=== PATIENT | male | born 1945 | race Caucasian/White ===

== ENCOUNTER → 2016-10-29 | Outpatient (CLI) | payer OTHER, MEDICARE | LOC: MMPC 11:11 | PROVIDERS: ATTEND Internal Medicine | DX: E78.5 Hyperlipidemia, unspecified (principal); M47.816 Spondylosis without myelopathy or radiculopathy, lumbar region; K21.9 Gastro-esophageal reflux disease without esophagitis; E66.3 Overweight; I10 Essential (primary) hypertension; H93.13 Tinnitus, bilateral | CPT/HCPCS: 99213; G0463 ==

== ENCOUNTER → 2016-11-07 | Outpatient (CLI) | payer OTHER, MEDICARE | LOC: MMPC 09:00 | PROVIDERS: ATTEND Physician Assistant | DX: N39.0 Urinary tract infection, site not specified (principal); J06.9 Acute upper respiratory infection, unspecified; F17.210 Nicotine dependence, cigarettes, uncomplicated | CPT/HCPCS: 99213; G0463 ==

== ENCOUNTER → 2017-02-10 | Outpatient (CLI) | payer OTHER, MEDICARE | LOC: MMPC 09:00 | DX: M21.372 Foot drop, left foot (principal); M47.816 Spondylosis without myelopathy or radiculopathy, lumbar region | CPT/HCPCS: 99213; G0463 ==

== ENCOUNTER → 2017-03-03 | Outpatient (CLI) | payer OTHER, MEDICARE ==
[2017-03-03 14:03] LABS: BILIRUBIN,URINE NEGATIVE (NEG); CLARITY,URINE CLEAR (CLEAR); COLOR,URINE YELLOW; GLUCOSE, URINE (UA) NEGATIVE (NEG); NITRATE,URINE NEGATIVE (NEG); OCCULT BLOOD,URINE NEGATIVE (NEG); PH,URINE 6.5 (5.0-8.5); PROTEIN,URINE NEGATIVE (NEG); UROBILINOGEN,URINE 0.2 mg/dL (0.2)
[2017-03-03 14:23] LABS: URINE SAMPLE TYPE VOIDED SPECIMEN
[2017-03-03 14:24] LABS: WBC,URINE 0
[2017-03-03 16:25] LABS: BLOOD UREA NITROGEN 33 mg/dL (7-22); CALCIUM 9.9 mg/dL (8.7-10.7); EST GLOMERULAR FILTRATION > 60 (>60 ml/min/1.73m(2))
[2017-03-03 16:48] LABS: HEMATOCRIT 42.3 % (42.0-52.0); HEMOGLOBIN 14.4 g/dL (14.0-18.0); MEAN CORPUSCULAR HEMOGLOBIN 30.7 PG (27-31); MEAN CORPUSCULAR VOLUME 90.2 FL (80-90); RED BLOOD COUNT 4.69 10^6/uL (4.70-6.10)
[2017-03-03 16:49] LABS: BASOPHILS # (AUTO) 0.02 10*3/UL; BASOPHILS % (AUTO) 0.1 % (0-1); EOSINOPHILS # (AUTO) 0.12 10*3/UL; EOSINOPHILS % (AUTO) 0.7 % (0-8); LYMPHOCYTES # (AUTO) 6.03 10*3/uL; MEAN PLATELET VOLUME 9.6 FL (7.4-12.2); MONOCYTES # (AUTO) 1.13 10*3/UL (0.3-0.8); MONOCYTES % (AUTO) 6.5 % (5-15); NEUTROPHILS # (AUTO) 9.71 10*3/UL; NEUTROPHILS % (AUTO) 55.9 % (50-80); PLATELET MORPHOLOGY COMMENT NORMAL MORPHOLOGY (NORM)
[2017-03-03 16:50] LABS: RBC MORPHOLOGY COMMENT SEE COMMENTS (NORM); WBC MORPHOLOGY COMMENT SEE COMMENTS (NORM)
== END ==
LOC: MOB LAB 13:34
PROVIDERS: ATTEND Internal Medicine
DX: N39.0 Urinary tract infection, site not specified (principal); E87.1 Hypo-osmolality and hyponatremia; N40.1 Benign prostatic hyperplasia with lower urinary tract symptoms; D72.828 Other elevated white blood cell count; Z98.1 Arthrodesis status
CPT/HCPCS: 36415; 80048; 81001; 85025

== ENCOUNTER → 2017-03-20 | Outpatient (CLI) | payer OTHER, MEDICARE ==
[2017-03-20 12:48] LABS: HEMATOCRIT 37.4 % (42.0-52.0); HEMOGLOBIN 12.3 g/dL (14.0-18.0); MEAN CORPUSCULAR HEMOGLOBIN 30.1 PG (27-31); MEAN CORPUSCULAR HGB CONC 32.9 g/dL (33-37); MEAN CORPUSCULAR VOLUME 91.7 FL (80-90); MEAN PLATELET VOLUME 9.2 FL (7.4-12.2); RED BLOOD COUNT 4.08 10^6/uL (4.70-6.10)
[2017-03-20 13:26] LABS: BLOOD UREA NITROGEN 17 mg/dL (7-22); CALCIUM 10.2 mg/dL (8.7-10.7); EST GLOMERULAR FILTRATION > 60 (>60 ml/min/1.73m(2))
== END ==
LOC: MOB LAB 11:44
PROVIDERS: ATTEND Internal Medicine
DX: E87.1 Hypo-osmolality and hyponatremia (principal); N39.0 Urinary tract infection, site not specified; R79.89 Other specified abnormal findings of blood chemistry; Z98.1 Arthrodesis status
CPT/HCPCS: 36415; 80048; 85027

== ENCOUNTER 2019-04-22 18:01 | Inpatient (IN) ==
[2019-04-22] MEDS ORDERED: MORPHINE SULFATE 4 MG/1 ML IVP ONE (19:49)
--- NOTE | 2019-04-22 20:44 | DI ---
AP PELVIS and LEFT HIP, 04/22/2019 6:23 PM: Clinical History: Trauma. Previous Exam: None at this facility. Hip View: AP and frog lateral. AP Pelvis: Soft Tissues: Normal. Bony Pelvis: Intact. Sacrum and SI Joints: Normal. Symphysis Pubis: Normal. Left Hip: Head: Normal spherical femoral head. Neck: Normal. No fracture. Acetabulum: No fracture noted. Joint Space: Normal joint space. Reading: Negative AP pelvis and left hip exam.
--- NOTE | 2019-04-22 20:58 | DI ---
LEFT HAND EXAM, 04/22/2019 6:26 PM: Clinical History: Injury. The patient fell. Comparison Study: None at this facility. Views: 3 views. Soft Tissues: No soft tissue swelling. Effusion: No joint effusion present. Joints: Severe degenerative arthritic change involving the triscaphe joint. Bones: No fracture or dislocation. Reading: Negative left hand exam for fracture or dislocation.
[2019-04-22 23:14] LABS: BASOPHILS # (AUTO) 0.04 10*3/UL; BASOPHILS % (AUTO) 0.3 % (0-1); EOSINOPHILS # (AUTO) 0.18 10*3/UL; EOSINOPHILS % (AUTO) 1.5 % (0-8); Hematocrit [HCT] 47.5 % (42.0-52.0); Hemoglobin [HGB] 16.5 g/dL (14.0-18.0); LYMPHOCYTES # (AUTO) 2.31 10*3/uL; MEAN CORPUSCULAR HGB CONC 34.7 g/dL (33-37); MEAN CORPUSCULAR VOLUME 88.1 FL (80-90); MONOCYTES # (AUTO) 0.52 10*3/UL (0.3-0.8); MONOCYTES % (AUTO) 4.4 % (5-15); NEUTROPHILS # (AUTO) 8.79 10*3/UL; NEUTROPHILS % (AUTO) 73.7 % (50-80); RED BLOOD COUNT 5.39 10^6/uL (4.70-6.10)
[2019-04-22 23:17] LABS: PLATELET MORPHOLOGY COMMENT NORMAL MORPHOLOGY (NORM); RBC MORPHOLOGY COMMENT NORMAL MORPHOLOGY (NORM); WBC MORPHOLOGY COMMENT NORMAL MORPHOLOGY (NORM)
[2019-04-22 23:19] LABS: BUN/CREATININE RATIO 19.16 (6-20); SERUM ALBUMIN 4.9 g/dL (3.5-4.8)
--- NOTE | 2019-04-22 23:27 | PDOC(PROG) ---
General Note Progress Note: I was called by the emergency room physician regarding admission for this patient. Was described to me that the patient fell off a ladder from a height of about 6 feet, had some fractured ribs and a pelvic rami fracture. There were no described medical issues with the patient. I suggested to the emergency room physician that this should go through the trauma service and general surgery because there is no medical issue apparent, but that I would be happy to consult on any medical issues that the patient may have. In addition we have phone coverage with orthopedics at this point but no orthopedic physician available for a physical exam consultation of the patient tonight. Although likely the pelvic rami fracture is nonsurgical, it would be my thought process that it would be nice to have a note and an examination from an orthopedic physician to make that determination. After this discussion with the emergency room physician, was brought to my attention from nurses on the medical surgical floor that general surgery has admitted the patient in the setting of a trauma. Again, I offered to do any medical consultation necessary if requested to do so.
[2019-04-22] MEDS ORDERED: HYDROcodone/IBUPROFEN 7.5 MG/200 MG TABLET PO PRN (23:38)
[2019-04-22] MEDS ORDERED: ONDANSETRON 4 MG/2 ML VIAL IVP PRN (23:38)
[2019-04-22] MEDS ORDERED: KETOROLAC 15 MG/1 ML VIAL IVP PRN (23:38)
[2019-04-22] MEDS ORDERED: MORPHINE SULFATE 2 MG/1 ML IVP PRN (23:38)
[2019-04-22] MEDS ORDERED: LIDOCAINE W/ SODIUM BICARB 0.5 ML SYR SUBD PRN (23:38)
[2019-04-22] MEDS ORDERED: CALCIUM CARBONATE 500 MG (TUMS) CHEWABLE TABLET PO PRN (23:38)
--- NOTE | 2019-04-23 00:12 | PDOC ---
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 He came in the emergency room complaining of pain. On the pain is located on the left side. Patient had a complete workup including CT scans of the chest and pelvis. He has multiple nondisplaced for fractures on the left. He has a nondisplaced fracture of the superior ramus of the pubis this extensive acetabular and to the ileum. I have had the CT scans reviewed by Dr. Pierre who has not seen the patient but based on CT scan recommends toe- touch ambulation for approximately 3 months. Past Medical History Medical History: Hypertension. Tinnitus of the ears. Degenerative joint disease. Benign prostatic hypertrophy Surgical History: He's had screws put in the back Tobacco Use: Never Smoker In the Past 12 Months, Have Used or Abuse Any of the Following Substance: None Medication / Allergies Home Medications: Home Medications Medication Instructions Recorded Confirmed Omeprazole 20 mg PO BID 10/06/12 04/22/19 aspirin 81 mg tablet,delayed 81 mg PO 3XW tab 11/03/17 04/22/19 release tamsulosin 0.4 mg capsule 0.4 mg PO QHS #90 cap 11/03/17 04/22/19 gabapentin 300 mg capsule 300 mg PO QDAY #30 cap 07/21/18 04/22/19 chlorthalidone 25 mg tablet 25 mg PO QDAY tab 09/03/18 04/22/19 lisinopril 20 mg tablet 20 mg PO QDAY #90 tab 09/03/18 04/22/19 pravastatin 80 mg tablet 40 mg PO QDAY tab 09/03/18 04/22/19 Allergies/Adverse Reactions: Allergies Allergy/AdvReac Type Severity Reaction Status Date / Time doxycycline calcium Allergy Severe SHORTNESS Verified 04/22/19 23:51 [From Vibramycin] OF BREATH doxycycline hyclate Allergy Severe SHORTNESS Verified 04/22/19 23:51 [From Vibramycin] OF BREATH doxycycline monohydrate Allergy Severe SHORTNESS Verified 04/22/19 23:51 [From Vibramycin] OF BREATH Penicillins Allergy Severe SHORTNESS Verified 04/22/19 23:51 OF BREATH Exam - Vitals Vital Signs: Vital Signs Temperature 98.2 F Temperature Source Temporal Artery Scan Pulse Rate [Pulse Oximeter] 80 Respiratory Rate 24 Blood Pressure [Left Arm] 121/83 Pulse Ox 97 Oxygen Delivery Method Room Air Height 5 ft 7 in Weight 165 lb - General General Appearance: No Acute Distress, Cooperative - Head Head Exam: Normocephalic - Eye Eye Exam: POSITIVE: PERRL, EOMI - Neck Neck Exam: Full ROM - Respiratory Respiratory Exam: POSITIVE: Clear to Auscultation - Bilaterally, Breathing Non Labored, Normal To Percussion - Cardiovascular Cardiovascular Exam: POSITIVE: RRR, No Murmur, No Clicks, No Gallops - GI/Abdominal GI/Abdominal Exam: POSITIVE: Normal Bowel Sounds, Non Tender, Non Distended, Soft - Rectal Rectal Exam: POSITIVE: Deferred - Extremities Extremities Exam: POSITIVE: Full ROM, Normal Capillary Refill, No Clubbing Present - Back Back Exam: POSITIVE: Normal Inspection, Full ROM - Neurological Neurological Exam: POSITIVE: Oriented x 3 Results - Labs CBC and BMP: 04/22/19 18:15 04/22/19 18:15 Assessment and Plan - Patient Problems (1) Multiple fractures of ribs, left side, initial encounter for open fracture Current Visit: Yes Status: Acute Code(s): S22.42XB - Multiple fractures of ribs, left side, initial encounter for open fracture (2) Fracture of left superior pubic ramus Current Visit: Yes Status: Acute Code(s): S32.512A - Fracture of superior rim of left pubis, initial encounter for closed fracture - Assessment / Plan Additional Assessment/Plan Details: At present time it appears that he has a fracture extending from the ramus through the acetabulum. His recommend that he is being toe-touch walking. He also has multiple rib fractures on the left. He'll be admitted for pain control. Also get physical therapy involved to help with getting ambulatory or least mobile
[2019-04-23] MEDS: HYDROcodone-APAP 7.5 MG-325 MG TABLET PO PRN ×3 (00:21→09:04)
[2019-04-23] MEDS: Apixaban Tab 2.5 MG TABLET PO SCH ×3 (00:23→20:53)
--- NOTE | 2019-04-23 03:20 | PDOC ---
Fall HPI - General Chief Complaint: Fall Stated Complaint: fell off stairs , back, hip pain Date Seen by Provider: 04/22/19 Time Seen by Provider: 18:10 Source: POSITIVE: Patient, Spouse Exam Limitations: POSITIVE: No limitations Nurse's Notes Reviewed & Considered: Yes - History of Present Illness Initial Comments: The patient is a 73-year-old male. Patient has a history of left foot drop and wears a ankle and foot brace to his left leg. He was standing on the top of some stairs and he states the tip of his left foot caught on the ground and he fell 6 feet onto the ground. He states that he has pain over the left posterior or lateral thorax and the anterior aspect of the left hip. 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 Patient is brought to the emergency room by his . Patient has pain when attempting to ambulate. He denies any head or neck discomfort or trauma. No abdominal trauma or discomfort. Patient underwent lumbar surgery 2 years ago and subsequently developed left foot drop postoperat ively. Patient is on gabapentin, Flomax, omeprazole, pravastatin and chlorthalidone.. 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 DENIES: Dazed, Seizure, Trouble Breathing, Memory Impairment, Blow to Head, Lost Consciousness, Other Location of Injuries / Pain: REPORTS: Left, Chest (Left posterior thorax), Hip (Left) Any Prior Injuries Related to Current Complaint?: Yes (foot drop following low back surgery 2 years ago) - Patient Home Medications Home Medications: Home Medications Omeprazole 20 mg PO BID 10/06/12 aspirin 81 mg tablet,delayed release 81 mg PO 3XW tab 11/03/17 tamsulosin 0.4 mg capsule 0.4 mg PO QHS #90 cap 11/03/17 gabapentin 300 mg capsule 300 mg PO QDAY #30 cap 07/21/18 chlorthalidone 25 mg tablet 25 mg PO QDAY tab 09/03/18 lisinopril 20 mg tablet 20 mg PO QDAY #90 tab 09/03/18 pravastatin 80 mg tablet 40 mg PO QDAY tab 09/03/18 - Patient Allergies Allergies/Adverse Reactions: Allergies Allergy/AdvReac Type Severity Reaction Status Date / Time doxycycline calcium Allergy Severe SHORTNESS Verified 04/22/19 23:51 [From Vibramycin] OF BREATH doxycycline hyclate Allergy Severe SHORTNESS Verified 04/22/19 23:51 [From Vibramycin] OF BREATH doxycycline monohydrate Allergy Severe SHORTNESS Verified 04/22/19 23:51 [From Vibramycin] OF BREATH Penicillins Allergy Severe SHORTNESS Verified 04/22/19 23:51 OF BREATH Past Medical History - heen HEENT History: Cataracts Cardiovascular History: Hypertension, Hyperlipidemia Respiratory History: Denies History Gastrointestinal History: GERD Genitourinary History: Denies History Endocrine History: Denies History Musculoskeletal History: Back Pain, Back Injury Neurological History: Denies History Blood Disorders: Denies History Psychiatric History: Denies History History of Sexually Transmitted Diseases: No Male Reproductive History: BPH Cancer History: Denies History In Past Year Been Physically Harmed or Verbally Threatened: No History of MDRO: No History of Other Communicable Diseases: Yes (MONO EARLY TEENS) Tobacco Use: Never Smoker Alcohol Use: Occasionally In the Past 12 Months, Have Used or Abuse Any Substance: None Previous Surgical History: Yes Type / Date of Surgery: RIGHT RC CTR/ BACK SX/ T&A/ ULNAR NERVE TRANSPOSITION Anesthesia Reactions: No Malignant Hyperthermia: No Significant Family History: Asthma, Cancer, COPD, Lung disease Past Medical History Reviewed: Reviewed - No Changes ROS - Limitations ROS Limitations: No Limitations Constitution: REPORTS: Denies Symptoms Cardiovascular: REPORTS: Denies Cardiac Symptoms Respiratory: REPORTS: Denies Resp Symptoms Neurological: REPORTS: Denies Neuro Symptoms Gastrointestinal: REPORTS: Denies GI Symptoms Endocrine: REPORTS: Denies Symptoms Musculoskeletal: REPORTS: Recent Injury (Pain left inguinal area; pain posterior lateral aspect of left thorax) Genitourinary: REPORTS: Denies Symptoms Eyes: REPORTS: Denies Symptoms ENT: REPORTS: Denies Symptoms Skin: REPORTS: Denies Skin Symptoms Lympathic: REPORTS: Denies Lympathic Symptoms Immunologic: POSITIVE: Denies Symptoms Psychiatric: POSITIVE: Denies Psych Symptoms Fall Physical Exam - General Appearance General Appearance: POSITIVE: Alert, Cooperative, No Evidence of Trauma, Mild Distress. NEGATIVE: No Acute Distress - HEENT HEENT: POSITIVE: Head Inspection Nml, Eyes Inspection Nml, Ears Inspection Nml, Nose Inspection Nml, Oral/Dental Inspect. Nml, Pharynx Inspect. Nml, PERRL, EOMI - Pupil Size Pupil Size: 3 mm: Bilateral (PERRLA) - Neck Neck: POSITIVE: Non Tender, Painless ROM, Trachea Midline, Nexus Criteria Negative - Respiratory / CVS Respiratory / CVS: POSITIVE: No Ecchymosis, Breath Sounds Normal, No Respiratory Distress, Heart Sounds Normal, Regular Rate/Rhythm, Rib Tenderness, Tenderness (See diagram), See Diagram. NEGATIVE: Chest Non Tender (Pain left posterior lateral thorax), Rib Palpable FX, Crepitus, SubQ Emphysema, Splinting, Paradoxical Movements, Decreased Breath Sounds, Ecchymosis, Swelling, Abrasion(s), Wheezes, Rales, Rhonchi, Tachycardia, Bradycardia, Irregularly Irreg Rate Peripheral Pulses: Radial (R): 2+, Radial (L): 2+ - Abdomen Abdomen: Soft: (All Quadrants), Normal Bowel Sounds: (All Quadrants), Denies Tenderness: (All Quadrants), No Splenomegaly: (All Quadrants), No Hepatomegaly: (All Quadrants), No Guarding: (All Quadrants), No Rebound: (All Quadrants), No Palpable Pulse: (All Quadrants), No Palpabale Mass: (All Quadrants), No Distention: (All Quadrants), No Rigidity: (All Quadrants) - Neuro / Psych Neuro / Psych: POSITIVE: Oriented X3, 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 NEGATIVE: Non Tender, Painless ROM, Vertebral Pt. Tenderness, CVA Tenderness (R), CVA Tenderness (L), Muscle Spasm - Extremities Extremity Assessment: Non-Tender: (RUE), (LUE), (RLE), Normal ROM: (RLE), (LUE), (RUE), No Edema: (ALL), Normal Inspection: (RUE), (LUE), (RLE), No Swelling: (ALL), Pelvis Stable: (ALL), Normal Tendon Exam: (ALL), Tender: (LLE), Abnormal ROM: (LLE) Additional Extremities Details: Extremity examination is normal except that the patient does express discomfort/pain on direct palpation over the left inguinal area. Patient is able to raise both heels off the gurney, but hip flexion is painful on the left. No gross deformities. No sensory motor or vascular deficits. Neurosensory ex am is grossly intact. Joint Exam: POSITIVE: Limited ROM. NEGATIVE: Normal ROM (Full flexion and extension of left hip limited), Normal Gait (Not tested), Ligamentous Instabil ity, Effusion, Click, Crepitus Images - Complete Complete: 1 - Area of described pain 2 - Area described pain Fall Progress - Results Reviewed by me Xrays/CTs/US Reviewed by me: Yes Discussed with Radiologist: Yes Radiology Findings: Left rib detail with a the chest read by radiologist as normal. Left hip x-ray read as normal by radiologist. CT scan of pelvis without contrast shows "nondisplaced fracture extending along the left superior pubic ramus, anterior acetabulum and ileum. CT scan of chest without contrast shows "slight irregularity of the left posterior seventh through 11th ribs, p ossible subtle fractures Lab Results Reviewed by Me: Yes CBC and BMP: 04/22/19 18:15 04/22/19 18:15 Lab Results:: Laboratory Results 04/22/19 04/22/19 18:15 18:15 WBC 11.92 H RBC 5.39 Hgb 16.5 Hct 47.5 MCV 88.1 MCH 30.6 MCHC 34.7 RDW Std Deviation 39.0 RDW Coeff of Shaheed 12.1 Plt Count 265 MPV 10.0 Immature Gran % (Auto) 0.7 Neut % (Auto) 73.7 Lymph % (Auto) 19.4 [place] % (Auto) 4.4 L Eos % (Auto) 1.5 Baso % (Auto) 0.3 Immature Gran # (Auto) 0.08 Neut # (Auto) 8.79 Lymph # (Auto) 2.31 [place] # (Auto) 0.52 Eos # (Auto) 0.18 Baso # (Auto) 0.04 WBC Morphology Comment Normal morphology Plt Morphology Comment Normal morphology RBC Morph Comment Normal morphology Sodium 128 L Potassium 3.7 L Chloride 89 L Carbon Dioxide 27 Anion Gap 12 BUN 23 H Creatinine 1.2 Estimated GFR BUN/Creatinine Ratio 19.16 Glucose 110 Calculated Osmolality 270.0 Calcium 10.8 H Total Bilirubin 0.7 AST 64 H ALT 62 Alkaline Phosphatase 62 Total Protein 8.3 H Albumin 4.9 H Globulin 3.4 Albumin/Globulin Ratio 1.40 - Patient's Progress Pain Medication Addressed: POSITIVE: Yes (Patient given 4 mg of morphine sulfate IV with good pain relief) School/Work Release Addressed: POSITIVE: Not Applicable Re-Examine Time:: 22:30 Re-Examine Comment: Patient and his advised of the radiologic and laboratory studies. Case discussed with Dr. Worley, orthopedic surgeon opinion polls survey worker, who recommended that the patient be placed on crutch walking with only toe touching on the left. However, the patient is not able to tolerate crutches due to his associated rib fractures. Case was then discussed with the hospitalist on-call, Dr. Butts, who refers the patient to the surgeon opinion polls survey worker, Dr. Oneill, who will come to the emergency room to further evaluate and treat, and who has admitted the patient. Status: POSITIVE: Improved, Re-Examined - Consult Consult (If Yes, Name of Consulting MD & Time Called): Yes (Drs. Worley, orthopedics; Dr. Butts, hospitalist; Dr. Oneill, surgeon, ) Consulting MD will see pt:: POSITIVE: [place] [facility] [place] Counseled: POSITIVE: Patient, Family (), RE: Lab Results, RE: Radiology Results, RE: DX, RE: Need for F/U Patient Care Time - Estimated PCT Patient Care Time (In Minutes): 55 Vital Signs - Recent Vital Signs Vital Signs: Vital Signs (Last 8 hours) Pulse Resp 04/22/19 23:27 74 16 - VS Reviewed Vital Signs Reviewed: Yes Discharge Clinical Impression: Rib fractures, Pelvic fracture Discharge Disposition: Admit to Inpatient Condition: Stable Patient Problem(s) Reviewed: Yes Date Decision to Admit to Inpatient: 04/22/19 Time Decision to Admit to Inpatient: 22:15
[2019-04-23 05:05] LABS: BASOPHILS # (AUTO) 0.02 10*3/UL; BASOPHILS % (AUTO) 0.2 % (0-1); EOSINOPHILS # (AUTO) 0.09 10*3/UL; EOSINOPHILS % (AUTO) 0.9 % (0-8); Hematocrit [HCT] 43.2 % (42.0-52.0); Hemoglobin [HGB] 14.9 g/dL (14.0-18.0); LYMPHOCYTES # (AUTO) 2.44 10*3/uL; MEAN CORPUSCULAR HGB CONC 34.5 g/dL (33-37); MEAN PLATELET VOLUME 9.3 FL (7.4-12.2); MONOCYTES # (AUTO) 0.96 10*3/UL (0.3-0.8); MONOCYTES % (AUTO) 9.8 % (5-15); NEUTROPHILS # (AUTO) 6.24 10*3/UL; NEUTROPHILS % (AUTO) 63.8 % (50-80); RED BLOOD COUNT 4.91 10^6/uL (4.70-6.10)
[2019-04-23 05:19] LABS: PLATELET MORPHOLOGY COMMENT NORMAL MORPHOLOGY (NORM); RBC MORPHOLOGY COMMENT NORMAL MORPHOLOGY (NORM); WBC MORPHOLOGY COMMENT NORMAL MORPHOLOGY (NORM)
[2019-04-23] MEDS ORDERED: CHLORTHALIDONE 50 MG TABLET PO SCH (09:00)
[2019-04-23] MEDS: FAMOTIDINE 20 MG TABLET PO SCH ×2 (09:04→20:53)
[2019-04-23] MEDS: GABAPENTIN 300 MG CAPSULE PO SCH (09:04)
[2019-04-23] MEDS: OMEPRAZOLE 20 MG CAPSULE PO SCH ×2 (09:04→20:53)
--- NOTE | 2019-04-23 09:07 | DI ---
CT Pelvis WO Contrast,04/22/2019 8:21 PM: Clinical History: Trauma Previous Exam: None at this facility. Findings: Multiple helically acquired CT images are obtained through the pelvis without contrast, and demonstra te postsurgical changes consistent with transpedicular fusion of L4/ 5. There is loss of intervertebral disc height at L5/S1. There is interbody fusion device at the L3/4 le ilene. There is a fracture through the left acetabulum anteriorly. The sacrum and sacroiliac joints are unremarkable. The symphysis pubis is unremarkable. The urinary bladder is unremarkable. The anterior abdominal wall and subcutaneous fat is normal. A fe w peripheral vascular calcifications are seen. Impression: 1. A slightly displaced fracture through the anterior left acetabulum extending into the left superio r pubic ramus.
[2019-04-23] MEDS: LISINOPRIL 20 MG TABLET PO SCH (11:36)
[2019-04-23 12:29] LABS: Hematocrit [HCT] 44.9 % (42.0-52.0); Hemoglobin [HGB] 15.3 g/dL (14.0-18.0); MEAN CORPUSCULAR HGB CONC 34.1 g/dL (33-37); MEAN CORPUSCULAR VOLUME 88.4 FL (80-90); MEAN PLATELET VOLUME 9.1 FL (7.4-12.2); RED BLOOD COUNT 5.08 10^6/uL (4.70-6.10)
--- NOTE | 2019-04-23 14:46 | DI ---
BILATERAL RIB SERIES WITH PA CHEST X-RAY, 04/22/2019 6:23 PM: Clinical History: Trauma. Views: PA chest and two rib views bilaterally. Chest X-Ray: Previous Exam: None at this facility. Soft Tissues: No acute soft tissue or bony abnormality. No subcutaneous emphysema. Bones: Normal. Heart: Cardiomegaly without CHF. Pulmonary Arteries: Pulmonary arterial hypertension. Lungs: No infiltrates. No pneumothorax or pulmonary contusion. Effusion(s): None. Mediastinum: Normal mediastinum. No pneumomediastinum. Nodules: No pulmonary nodules. Bilateral Rib Series: Previous Exam: None at this facility. Ribs: Vertical lucencies are present to the posterior aspect of the left eighth and ninth ribs, suspi cious for fractures. Lungs: Normal visualized lungs and normal apices. Readin. Probable fractures of the eighth and ninth left ribs posteriorly. 2. Cardiomegaly without CHF. There is pulmonary arterial hypertension.
--- NOTE | 2019-04-23 15:43 | DI ---
CT Chest WO Contrast,04/22/2019 8:21 PM: Clinical History: Pulmonary contusion Previous Exam: None at this facility. Findings: Multiple helically acquired CT images are obtained through the chest without contrast. There are mild emphysematous changes throughout. There is no rib fracture identified. There is no pulmonary contusion identified. There is no evidence of pneumothorax. The thyroid is normal. Mild degenerative changes of the thoracic spine are seen. The upper abdomen is unremarkable. Impression: No acute intrathoracic pathology.
--- NOTE | 2019-04-23 16:12 | PT.PROG ---
Progress Note Progress Note: S. Patient stated he is feeling better this afternoon compared to this morning. O. Patient performed sit to stands x 5 then ambulated 30 feet around his room with front wheeled walker. Patient was left at the edge of bed with nursing staff. A. Patient tolerated functional activity well, he was able to ambulate with non- weight bearing to toe touch weight bearing with no issues. Patient would continue to benefit from skilled therapy to increase mobility, strength and safety. P. Continue POC.
--- NOTE | 2019-04-23 16:28 | PDOC ---
HPI - History of Present Illness Date of Service: 04/23/19 Time of Service: 16:23 Chief Complaint: Fall History of Present Illness: This very pleasant 73-year-old male whom I was asked to see for hyponatremia, hypertension, and do likely eventually presume primary role in hospital attending, who fell last night while climbing the stairs in his garage. Apparently they lead to a loft. He has foot drop on the left side and caught his toe on a step and fell down. He landed on his left side. He landed hard enough that it was quite painful in fact he stated it was more painful than a prior liver laceration that he had had from a prior fall. He was brought in for evaluation. Scanning showed possible rib fractures and a left superior rami fracture that extended into the acetabulum. I spoke with the trauma orthopedic surgeon on [facility] and was told that the patient would not require surgery for this but should be toe touch weightbearing for 6-8 weeks with repeat films, plain films with special imaging to be done in about one week. Interestingly, his sodium was 128 and he is on chlorthalidone. He states that he urinates frequently on the chlorthalidone and is not overly a fan of the medication. However he required 2 blood pressure medications for his hypertension. He was quite hypertensive according to his primary physician per the patient's report. All that is side, from the fall standpoint, the patient had some muscle spasms overnight. He notes that he gets sedated with muscle relaxants. He states his pain is under much better control now. He would be agreeable to doing a swing bed if that was necessary. Right now he feels like he can get up but he is requiring some therapy assistance. He denies any chest pain, shortness breath, or vomiting. He has noticed some nausea. Antiemetics have been controlling that. At the time of the fall he denied any presyncopal symptoms or syncopal symptoms. Past Medical History Medical History: Hypertension. Tinnitus of the ears. Degenerative joint disease. Benign prostatic hypertrophy. Remote history of liver laceration. Hypercholesterolemia. GERD Surgical History: 1. Back surgery 2. 2. Carpal tunnel release Pertinent Family History: States that he had one parent of kidney problems and that there is an extensive history of cancer in his family. Past Social History: . Has healthy children although one daughter does have MS. He is retired from the [employer]. Does not smoke. Occasionally drinks alcohol Tobacco Use: Never Smoker In the Past 12 Months, Have Used or Abuse Any of the Following Substance: None Alcohol Use: Occasionally Medication / Allergies Home Medications: Home Medications Medication Instructions Recorded Confirmed Omeprazole 20 mg PO BID 10/06/12 04/22/19 aspirin 81 mg tablet,delayed 81 mg PO 3XW tab 11/03/17 04/22/19 release tamsulosin 0.4 mg capsule 0.4 mg PO QHS #90 cap 11/03/17 04/22/19 gabapentin 300 mg capsule 300 mg PO QDAY #30 cap 07/21/18 04/22/19 chlorthalidone 25 mg tablet 25 mg PO QDAY tab 09/03/18 04/22/19 lisinopril 20 mg tablet 20 mg PO QDAY #90 tab 09/03/18 04/22/19 pravastatin 80 mg tablet 40 mg PO QDAY tab 09/03/18 04/22/19 Allergies/Adverse Reactions: Allergies Allergy/AdvReac Type Severity Reaction Status Date / Time doxycycline calcium Allergy Severe SHORTNESS Verified 04/22/19 23:51 [From Vibramycin] OF BREATH doxycycline hyclate Allergy Severe SHORTNESS Verified 04/22/19 23:51 [From Vibramycin] OF BREATH doxycycline monohydrate Allergy Severe SHORTNESS Verified 04/22/19 23:51 [From Vibramycin] OF BREATH Penicillins Allergy Severe SHORTNESS Verified 04/22/19 23:51 OF BREATH Review of Systems - Review of Systems All Systems: Reviewed & No Additional Complaints Except as Stated (I did a 12 point review systems and it was negative other than that discussed below and in the history of present illness.) - Genitourinary Genitourinary: REPORTS: Other (Prostate was biopsied in the past and it was negative for cancer) Exam - Vitals Vital Signs: Vital Signs Temperature 97.5 F Temperature Source Temporal Artery Scan Pulse Rate [Apical] 52 Pulse Rate [Pulse Oximeter] 60 Pulse Rate 54 Respiratory Rate 17 Blood Pressure [Right Arm] 114/60 Blood Pressure [Left Arm] 106/54 Blood Pressure 141/113 Pulse Ox 95 Oxygen Delivery Method Room Air Height 5 ft 7 in Weight 165 lb - General General Appearance: No Acute Distress, Cooperative - Head Head Exam: Normal Inspection, Normocephalic, Atraumatic - Eye Eye Exam: POSITIVE: No Scleral Icterus - ENT ENT Exam: POSITIVE: Mucous Membranes Moist - Neck Neck Exam: Normal Inspection, No Tenderness, No Lymphadenopathy, No Thyromegaly, JVP is not Raised - Respiratory Respiratory Exam: POSITIVE: Clear to Auscultation - Bilaterally, Breathing Non Labored Additional Respiratory Exam Details: Definitely hurts the patient when he takes in a deep breath. - Cardiovascular Cardiovascular Exam: POSITIVE: RRR, No Murmur, No Clicks, No Gallops, No Rubs, No JVD - GI/Abdominal GI/Abdominal Exam: POSITIVE: Non Tender, Non Distended, Soft - Rectal Rectal Exam: POSITIVE: Deferred - External Exam: POSITIVE: Deferred Exam: POSITIVE: Deferred - Extremities Extremities Exam: POSITIVE: No Clubbing Present, No Edema Present, No Cyanosis Present - Neurological Neurological Exam: POSITIVE: Alert, Oriented x 3, No Facial Droop, Speech Intact / Clear, Moves All Extremities Equally - Psychiatric Psychiatric Exam: POSITIVE: Normal Affect, Normal Mood Results - Labs CBC and BMP: 04/23/19 12:20 04/23/19 04:20 Additional Lab Results: Laboratory Results 04/22/19 04/22/19 04/23/19 18:15 18:15 04:20 WBC 11.92 H 9.79 RBC 5.39 4.91 Hgb 16.5 14.9 Hct 47.5 43.2 MCV 88.1 88.0 MCH 30.6 30.3 MCHC 34.7 34.5 RDW Std Deviation 39.0 38.4 L RDW Coeff of Shaheed 12.1 12.1 Plt Count 265 273 MPV 10.0 9.3 Immature Gran % (Auto) 0.7 0.4 Neut % (Auto) 73.7 63.8 Lymph % (Auto) 19.4 24.9 [place] % (Auto) 4.4 L 9.8 Eos % (Auto) 1.5 0.9 Baso % (Auto) 0.3 0.2 Immature Gran # (Auto) 0.08 0.04 Neut # (Auto) 8.79 6.24 Lymph # (Auto) 2.31 2.44 [place] # (Auto) 0.52 0.96 H Eos # (Auto) 0.18 0.09 Baso # (Auto) 0.04 0.02 WBC Morphology Comment Normal morphology Normal morphology Plt Morphology Comment Normal morphology Normal morphology RBC Morph Comment Normal morphology Normal morphology Sodium 128 L Potassium 3.7 L Chloride 89 L Carbon Dioxide 27 Anion Gap 12 BUN 23 H Creatinine 1.2 Estimated GFR BUN/Creatinine Ratio 19.16 Glucose 110 Calculated Osmolality 270.0 Calcium 10.8 H Total Bilirubin 0.7 AST 64 H ALT 62 Alkaline Phosphatase 62 Total Protein 8.3 H Albumin 4.9 H Globulin 3.4 Albumin/Globulin Ratio 1.40 04/23/19 04/23/19 04:20 12:20 WBC 12.17 H RBC 5.08 Hgb 15.3 Hct 44.9 MCV 88.4 MCH 30.1 MCHC 34.1 RDW Std Deviation 39.1 RDW Coeff of Shaheed 12.2 Plt Count 261 MPV 9.1 Immature Gran % (Auto) Neut % (Auto) Lymph % (Auto) [place] % (Auto) Eos % (Auto) Baso % (Auto) Immature Gran # (Auto) Neut # (Auto) Lymph # (Auto) [place] # (Auto) Eos # (Auto) Baso # (Auto) WBC Morphology Comment Plt Morphology Comment RBC Morph Comment Sodium 128 L Potassium 3.9 Chloride 90 L Carbon Dioxide 27 Anion Gap 11 BUN 26 H Creatinine 1.3 Estimated GFR BUN/Creatinine Ratio 20.00 Glucose 115 H Calculated Osmolality 271.0 Calcium 10.2 Total Bilirubin AST ALT Alkaline Phosphatase Total Protein Albumin Globulin Albumin/Globulin Ratio - Imaging Status: Image Reviewed by Me (I looked at the chest x-ray, rib films, and CT scan of the chest. There is no evidence of pneumonia, no evidence of pulmonary contusions. The radiologist felt that there were no fractures on the CT scan of the chest in terms of rib fractures. There is an acetabular fracture on the pelvic CT scan. That was read by the radiologist this is on the left side. Although it was read as displaced, orthopedics felt it was nondisplaced.) Assessment and Plan - Patient Problems (1) Hyponatremia Current Visit: Yes Status: Chronic Onset Date: 03/03/17 Code(s): E87.1 - Hypo-osmolality and hyponatremia (2) Left acetabular fracture Current Visit: Yes Status: Acute Code(s): S32.402A - Unspecified fracture of left acetabulum, initial encounter for closed fracture Qualifiers: Encounter type: initial encounter Sublocation of acetabulum: anterior wall Fracture type: closed Fracture alignment: nondisplaced Qualified Code(s): S32.415A - Nondisplaced fracture of anterior wall of left acetabulum, initial encounter for closed fracture (3) Fracture of left superior pubic ramus Current Visit: Yes Status: Acute Code(s): S32.512A - Fracture of superior rim of left pubis, initial encounter for closed fracture Qualifiers: Encounter type: initial encounter Fracture type: closed Qualified Code(s): S32.512A - Fracture of superior rim of left pubis, initial encounter for closed fracture (4) Left foot drop Current Visit: Yes Status: Chronic Onset Date: 02/10/17 Code(s): M21.372 - Foot drop, left foot (5) Hyperlipidemia Current Visit: Yes Status: Chronic Onset Date: 03/14/15 Code(s): E78.5 - Hyperlipidemia, unspecified Qualifiers: Hyperlipidemia type: unspecified Qualified Code(s): E78.5 - Hyperlipidemia, unspecified (6) Gastroesophageal reflux disease without esophagitis Current Visit: Yes Status: Chronic Onset Date: 11/27/15 Code(s): K21.9 - Gastro-esophageal reflux disease without esophagitis (7) Hypertension Current Visit: Yes Status: Acute Code(s): I10 - Essential (primary) hypertension Qualifiers: Hypertension type: essential hypertension Qualified Code(s): I10 - Ess ential (primary) hypertension (8) Benign prostatic hyperplasia Current Visit: Yes Status: Chronic Onset Date: 03/03/17 Code(s): N40.0 - Benign prostatic hyperplasia without lower urinary tract symptoms Qualifiers: Lower urinary tract symptom presence: symptoms present Lower urinary tract symptom detail: urinary frequency Qualified Code(s): N40.1 - Benign prostatic hyperplasia with lower urinary tract symptoms; R35.0 - Frequency of micturition - Assessment / Plan Additional Assessment/Plan Details: The patient is been mildly hypotensive or borderline hypotensive with systolics in the low 100s during the hospital stay thus far, I think related to pain medications. PT and OT with toe-touch weightbearing left lower extremity. We'll have to see how the patient is able to comply with this given his left foot drop. Possible swing bed? Stop chlorthalidone as this is the likely source of hyponatremia. The patient appears euvolemic. SIADH could certainly be a consideration as well. We'll get urine lites. Muscle relaxant, we'll try Robaxin for the discomfort and described muscle spasm. Hospital service will be glad to assume primary care role. Greatly appreciate trauma service evaluating patient.
[2019-04-23] MEDS ORDERED: Methocarbamol Tab 500 MG TAB PO PRN (16:34)
[2019-04-23] MEDS: TAMSULOSIN 0.4 MG CAPSULE PO SCH (20:53)
[2019-04-23] MEDS: Pravastatin Tab 40 MG TAB PO SCH (20:54)
[2019-04-24] MEDS: FAMOTIDINE 20 MG TABLET PO SCH (08:06)
[2019-04-24] MEDS: Apixaban Tab 2.5 MG TABLET PO SCH ×2 (08:06→21:54)
[2019-04-24] MEDS: OMEPRAZOLE 20 MG CAPSULE PO SCH ×2 (08:06→21:54)
[2019-04-24] MEDS: GABAPENTIN 300 MG CAPSULE PO SCH (08:12)
--- NOTE | 2019-04-24 10:23 | OT.PROG ---
Progress Note Progress Note: S: pt stated that he was really sore today. O: tx consisted of STS x1 with MIN A for standing, functional ambulation x40' with FWW and CGA for safety, standing ADL tasks at sink of face washing and brushing teeth with CGA for safety, functional transfer to recliner with MIN A for safety and stability. A: pt tolerated session well. pt is sore today from injuries but is overall doing well. pt was able to maintain weight bearing status throughout session. pt would benefit from continued skilled therapy services to increase functional mobility. P: continue POC
[2019-04-24] MEDS: LISINOPRIL 20 MG TABLET PO SCH (11:12)
[2019-04-24] MEDS ORDERED: Naproxen Tab 500 MG TAB PO ONE (12:43)
--- NOTE | 2019-04-24 12:59 | PDOC(PROG) ---
Date of Service: 04/24/19 Time of Service: 12:44 Interval History: no chest pain, SOB, nausea or vomiting. has pain in left hip. but controlled. doing well with therapy. nausea with pain meds Objective : Data - Labs CBC and BMP: 04/23/19 12:20 04/23/19 04:20 Objective : Exam - General General Appearance: No Acute Distress, Cooperative Additional General Exam Details: Vital Signs - Last Taken Temperature 97.8 F 04/24/19 07:36 Pulse Rate 69 04/24/19 11:08 Respiratory Rate 18 04/24/19 07:36 Blood Pressure 109/46 04/24/19 11:08 Pulse Ox 94 04/24/19 11:08 - Eye Eye Exam: No Scleral Icterus - ENT ENT Exam: Mucous Membranes Moist - Neck Neck Exam: JVP is not Raised - Respiratory Respiratory Exam: Clear to Auscultation - Bilaterally, Breathing Non Labored - Cardiovascular Cardiovascular Exam: RRR, No Murmur, No Clicks, No Gallops, No Rubs, No JVD - GI/Abdominal GI/Abdominal Exam: Normal Bowel Sounds, Non Tender, Non Distended, Soft - Extremities Extremities Exam: No Clubbing Present, No Edema Present, No Cyanosis Present - Neurological Neurological Exam: Alert, Oriented x 3, No Facial Droop, Speech Intact / Clear, Moves All Extremities Equally Assessment and Plan - Patient Problems (1) Left acetabular fracture Current Visit: Yes Status: Acute Code(s): S32.402A - Unspecified fracture of left acetabulum, initial encounter for closed fracture Qualifiers: Encounter type: initial encounter Sublocation of acetabulum: anterior wall Fracture type: closed Fracture alignment: nondisplaced Qualified Code(s): S32.415A - Nondisplaced fracture of anterior wall of left acetabulum, initial encounter for closed fracture (2) Hyponatremia Current Visit: Yes Status: Chronic Onset Date: 03/03/17 Code(s): E87.1 - Hypo-osmolality and hyponatremia (3) Fracture of left superior pubic ramus Current Visit: Yes Status: Acute Code(s): S32.512A - Fracture of superior rim of left pubis, initial encounter for closed fracture Qualifiers: Encounter type: initial encounter Fracture type: closed Qualified Code(s): S32.512A - Fracture of superior rim of left pubis, initial encounter for closed fracture (4) Left foot drop Current Visit: Yes Status: Chronic Onset Date: 02/10/17 Code(s): M21.372 - Foot drop, left foot (5) Hyperlipidemia Current Visit: Yes Status: Chronic Onset Date: 03/14/15 Code(s): E78.5 - Hyperlipidemia, unspecified Qualifiers: Hyperlipidemia type: unspecified Qualified Code(s): E78.5 - Hyperlipidemia, unspecified (6) Gastroesophageal reflux disease without esophagitis Current Visit: Yes Status: Chronic Onset Date: 11/27/15 Code(s): K21.9 - Gastro-esophageal reflux disease without esophagitis (7) Hypertension Current Visit: Yes Status: Acute Code(s): I10 - Essential (primary) hypertension Qualifiers: Hypertension type: essential hypertension Qualified Code(s): I10 - Essential (primary) hypertension (8) Benign prostatic hyperplasia Current Visit: Yes Status: Chronic Onset Date: 03/03/17 Code(s): N40.0 - Benign prostatic hyperplasia without lower urinary tract symptoms Qualifiers: Lower urinary tract symptom presence: symptoms present Lower urinary tract symptom detail: urinary frequency Qualified Code(s): N40.1 - Benign prostatic hyperplasia with lower urinary tract symptoms; R35.0 - Frequency of micturition - Assessment / Plan Additional Assessment/Plan Details: Left acetabular fractures nonsurgical. Toe-touch weightbearing, reimage one week, we'll try to establish follow-up with orthopedics post hospital stay. Patient will direct us as to who he would like to see post hospital stay. Change pain medications to use naproxen as patient is very well with Aleve at home. Also write for Tylenol. Stop narcotics. He is on both a proton pump inhibitor and H2 jos, stop the H2 jos. PT and OT. Possible swing bed? Given hyponatremia and chlorthalidone, I still recommend staying off of chlorthalidone, but will check basic metabolic panel, urine sodium and urine creatinine tomorrow.
[2019-04-24] MEDS: Acetaminophen 1000mg Inj 1,000 MG/100 ML VIAL IV PRN ×2 (14:08→21:55)
[2019-04-24] MEDS: Naproxen Tab 500 MG TAB PO SCH (17:13)
[2019-04-24] MEDS: TAMSULOSIN 0.4 MG CAPSULE PO SCH (21:54)
[2019-04-24] MEDS: Pravastatin Tab 40 MG TAB PO SCH (21:54)
[2019-04-25 05:08] LABS: BUN/CREATININE RATIO 23.33 (6-20)
[2019-04-25] MEDS: Naproxen Tab 500 MG TAB PO SCH ×2 (07:14→16:57)
--- NOTE | 2019-04-25 08:15 | PDOC(PROG) ---
Date of Service: 04/25/19 Time of Service: 08:10 Interval History: Subjective He Said he still have pain in the left side of the chest and the left hip area when he moves but otherwise he Does not have pain while in bed. He said he doesn't like taking pain medication because he would feel nauseated. It seems the current medication that he is getting including NSAID and Tylenol seem to control his current pain level. He is denying other symptoms. Objective : Data - Labs CBC and BMP: 04/23/19 12:20 04/25/19 04:15 Objective : Exam - General General Appearance: No Acute Distress, Cooperative - Head Head Exam: Normal Inspection - Eye Eye Exam: Normal Appearance - ENT ENT Exam: Normal Exam - Neck Neck Exam: Normal Inspection - Respiratory Respiratory Exam: Clear to Auscultation - Bilaterally - Cardiovascular Cardiovascular Exam: RRR - GI/Abdominal GI/Abdominal Exam: Normal Bowel Sounds, Non Tender, Non Distended, Soft, No Organomegaly - Rectal Rectal Exam: Deferred - External Exam: Deferred - Extremities Additional Extremities Exam Details: There is a left foot drop which is old. - Back Back Exam: Normal Inspection - Neurological Neurological Exam: Alert, Oriented x 3, CN II-XII Intact, No Facial Droop, Speech Intact / Clear Additional Neurological Exam Details: there is restriction of movement of the left leg because of pain and there is also left foot drop. - Psychiatric Psychiatric Exam: Normal Affect - Integumentary Integumentary Exam: Normal Color Assessment and Plan - Patient Problems (1) Left acetabular fracture Current Visit: Yes Status: Acute Comment: Continue PT OT. Continue current pain medication. For DVT prophylaxis he is on eliquis. Code(s): S32.402A - Unspecified fracture of left acetabulum, initial encounter for closed fracture Qualifiers: Encounter type: initial encounter Sublocation of acetabulum: anterior wall Fracture type: closed Fracture alignment: nondisplaced Qualified Code(s): S32.415A - Nondisplaced fracture of anterior wall of left acetabulum, initial encounter for closed fracture (2) Hyponatremia Current Visit: Yes Status: Chronic Onset Date: 03/03/17 Comment: This is improving. Code(s): E87.1 - Hypo-osmolality and hyponatremia (3) Fracture of left superior pubic ramus Current Visit: Yes Status: Acute Comment: Continue PT OT continue pain medications. Code(s): S32.512A - Fracture of superior rim of left pubis, initial encounter for closed fracture Qualifiers: Encounter type: initial encounter Fracture type: closed Qualified Code(s): S32.512A - Fracture of superior rim of left pubis, initial encounter for closed fracture (4) Hyperlipidemia Current Visit: Yes Status: Chronic Onset Date: 03/14/15 Comment: Same med Code(s): E78.5 - Hyperlipidemia, unspecified Qualifiers: Hyperlipidemia type: unspecified Qualified Code(s): E78.5 - Hyperlipidemia, unspecified (5) Gastroesophageal reflux disease without esophagitis Current Visit: Yes Status: Chronic Onset Date: 11/27/15 Comment: Same med Code(s): K21.9 - Gastro-esophageal reflux disease without esophagitis (6) Hypertension Current Visit: Yes Status: Acute Comment: We'll hold the lisinopril today, his blood pressure is on the low side plus he did not receive it yesterday and the day before. Code(s): I10 - Essential (primary) hypertension Qualifiers: Hypertension type: essential hypertension Qualified Code(s): I10 - Essential (primary) hypertension (7) Benign prostatic hyperplasia Current Visit: Yes Status: Chronic Onset Date: 03/03/17 Comment: Continue Flomax Code(s): N40.0 - Benign prostatic hyperplasia without lower urinary tract symptoms Qualifiers: Lower urinary tract symptom presence: symptoms present Lower urinary tract symptom detail: urinary frequency Qualified Code(s): N40.1 - Benign prostatic hyperplasia with lower urinary tract symptoms; R35.0 - Frequency of micturition
[2019-04-25] MEDS: OMEPRAZOLE 20 MG CAPSULE PO SCH ×2 (08:22→20:53)
[2019-04-25] MEDS: GABAPENTIN 300 MG CAPSULE PO SCH (08:22)
[2019-04-25] MEDS: Apixaban Tab 2.5 MG TABLET PO SCH ×2 (08:22→20:54)
--- NOTE | 2019-04-25 11:12 | OT.PROG ---
Progress Note Progress Note: S: pt stated that he feels that he is moving around better. O: tx consisted of functional transfer from sitting to standing with CGA for safety, functional ambulation x315' with FWW and CGA for safety and x3 rest breaks. A: pt was able to ambulate self with FWW well today. pt had no LOB and was able to follow weight bearing precautions while ambulating. P: continue POC
[2019-04-25] MEDS: Acetaminophen 1000mg Inj 1,000 MG/100 ML VIAL IV PRN ×2 (14:40→22:30)
[2019-04-25] MEDS: TAMSULOSIN 0.4 MG CAPSULE PO SCH (20:53)
[2019-04-25] MEDS: Pravastatin Tab 40 MG TAB PO SCH (20:53)
[2019-04-26 04:51] LABS: Hematocrit [HCT] 42.1 % (42.0-52.0); Hemoglobin [HGB] 14.1 g/dL (14.0-18.0); MEAN CORPUSCULAR HGB CONC 33.5 g/dL (33-37); MEAN CORPUSCULAR VOLUME 90.9 FL (80-90); MEAN PLATELET VOLUME 9.5 FL (7.4-12.2); RED BLOOD COUNT 4.63 10^6/uL (4.70-6.10)
[2019-04-26 05:23] LABS: PLATELET MORPHOLOGY COMMENT NORMAL MORPHOLOGY (NORM); RBC MORPHOLOGY COMMENT NORMAL MORPHOLOGY (NORM); WBC MORPHOLOGY COMMENT NORMAL MORPHOLOGY (NORM)
[2019-04-26 05:24] LABS: BAND NEUTROPHILS % 0 % (0-10); BASOPHILS % (MANUAL) 5 % (0-1); EOSINOPHILS % (MANUAL) 1 % (0-8); METAMYELOCYTES % 0 %; MONOCYTES % (MANUAL) 5 % (0-12); MYELOCYTES % 0 %; NEUTROPHILS % (MANUAL) 48 % (50-80); PROMYELOCYTES % 0 %
[2019-04-26 07:11] VITALS: BP 122/66; RESP 16; TEMP 97.5; O2SAT 91
[2019-04-26] MEDS: Naproxen Tab 500 MG TAB PO SCH (07:13)
--- NOTE | 2019-04-26 08:18 | DCSUMMARY ---
Hospitalization Summary Admit Date: 04/22/2019 Discharge Date: 04/26/19 Hospital Course: Discharge diagnoses 1. Slightly displaced fracture through the anterior left acetabulum extending into the left superior pubic ramus. Managed conservatively. 2. History of hypertension 3. History of hypercholesterolemia 4. History of BPH 5. History of GERD 6. Hyponatremia, improved likely secondary to diuretic 7. History of left foot drop Hospital course This is a 73 years old male with medical history significant for history of hypertension, GERD, hypercholesterolemia and BPH who fell while climbing stairs in his garage. He landed on the left side he had pain. Because of that he came into the ER. Evaluation revealed slightly displaced fracture through the anterior left acetabular extending into the left superior Pubic ramus. There is question initially of left hip fracture but then a CT of the chest showed no evidence of fracture. He was admitted to surgery and was discussed also with the orthopedic he does not require surgery but he requires a toe-touch weightbearing for maybe 6-8 weeks. His care was transferred to hospitalist service after admission to the surgeon. please see Dr. Dsouza note. His sodium was 128 and the chlorthalidone was discontinued. His blood pressure was on the low side so in addition to discontinuing the chlorthalidone his lisinopril was also withheld. Patient started physical therapy. I saw him later on during his hospital stay he was doing well with physical therapy and on the day of discharge pain seemed to be controlled. Based on my discussion with physical therapy they felt that he can be discharged. He'll be discharged home and fol low-up with orthopedics. For DVT prophylaxis while he was in the hospital he was on eliquis. We discharged him on aspirin. Discharge him also on Percocet. Did tell him to hold his blood pressure medication until his blood pressure is more than 140 systolic or more than 90 diastolic. Discharge instructions Diet regular Activity toe-touch weightbearing until cleared by orthopedic. Medications Current Medication(s) Medication Instructions Recorded Confirmed Type Omeprazole 20 mg PO BID 10/06/12 04/22/19 History tamsulosin 0.4 mg capsule 0.4 mg PO QHS #90 cap 11/03/17 04/22/19 Rx gabapentin 300 mg capsule 300 mg PO QDAY #30 cap 07/21/18 04/22/19 Rx lisinopril 20 mg tablet 20 mg PO QDAY #90 tab 09/03/18 04/22/19 History pravastatin 80 mg tablet 40 mg PO QDAY tab 09/03/18 04/22/19 History Aspirin [Aspir 81] 81 mg PO DAILY #30 tablet. 04/26/19 Rx oxyCODONE/APAP 5/325 Tab 1 - 2 tab PO Q6H PRN #30 tab 04/26/19 Rx [Percocet 5/325 Tab] Follow-up with PCP 1-2 weeks, follow-up with Dr. Duarte or Dr. Freeman 1-2 weeks Condition at discharge was stable for discharge Exam - Vitals Vital Signs: Vital Signs Temperature 97.5 F Temperature Source Oral Pulse Rate [Bilateral Dorsalis 74 Pedis] Pulse Rate [Apical] 80 Pulse Rate [Pulse Oximeter] 61 Pulse Rate 69 Respiratory Rate 16 Blood Pressure [Right Arm] 111/57 Blood Pressure [Left Arm] 122/66 Blood Pressure 141/113 Pulse Ox 91 Oxygen Delivery Method Room Air Height 5 ft 7 in Weight 158 lb 12.8 oz - General General Appearance: No Acute Distress, Cooperative - Head Head Exam: Normal Inspection - Eye Eye Exam: POSITIVE: Normal Appearance - ENT ENT Exam: POSITIVE: Normal Exam - Neck Neck Exam: Normal Inspection - Respiratory Respiratory Exam: POSITIVE: Clear to Auscultation - Bilaterally - Cardiovascular Cardiovascular Exam: POSITIVE: RRR - GI/Abdominal GI/Abdominal Exam: POSITIVE: Normal Bowel Sounds, Non Tender, Non Distended, Soft, No Organomegaly - Rectal Rectal Exam: POSITIVE: Deferred - External Exam: POSITIVE: Deferred - Extremities Additional Extremities Exam Details: Left foot drop noted. This is old. - Back Back Exam: POSITIVE: Normal Inspection - Neurological Neurological Exam: POSITIVE: Alert, Oriented x 3, CN II-XII Intact, No Facial Droop, Speech Intact / Clear - Psychiatric Psychiatric Exam: POSITIVE: Normal Affect - Integumentary Integumentary Exam: POSITIVE: Normal Color Patient Problems - Patient Problem List (1) Left acetabular fracture Current Visit: Yes Status: Acute Code(s): S32.402A - Unspecified fracture of left acetabulum, initial encounter for closed fracture Qualifiers: Encounter type: initial encounter Sublocation of acetabulum: anterior wall Fracture type: closed Fracture alignment: nondisplaced Qualified Code(s): S32.415A - Nondisplaced fracture of anterior wall of left acetabulum, initial encounter for closed fracture Category: Medical (2) Hyponatremia Current Visit: Yes Status: Chronic Onset Date: 03/03/17 Code(s): E87.1 - Hypo-osmolality and hyponatremia Category: Medical (3) Fracture of left superior pubic ramus Current Visit: Yes Status: Acute Code(s): S32.512A - Fracture of superior rim of left pubis, initial encounter for closed fracture Qualifiers: Encounter type: initial encounter Fracture type: closed Qualified Code(s): S32.512A - Fracture of superior rim of left pubis, initial encounter for closed fracture Category: Medical (4) Hyperlipidemia Current Visit: Yes Status: Chronic Onset Date: 03/14/15 Code(s): E78.5 - Hyperlipidemia, unspecified Qualifiers: Hyperlipidemia type: unspecified Qualified Code(s): E78.5 - Hyperlipidemia, unspecified Category: Medical (5) Gastroesophageal reflux disease without esophagitis Current Visit: Yes Status: Chronic Onset Date: 11/27/15 Code(s): K21.9 - Gastro-esophageal reflux disease without esophagitis Category: Medical (6) Hypertension Current Visit: Yes Status: Acute Code(s): I10 - Essential (primary) hype rtension Qualifiers: Hypertension type: essential hypertension Qualified Code(s): I10 - Essential (primary) hypertension Category: Medical (7) Benign prostatic hyperplasia Current Visit: Yes Status: Chronic Onset Date: 03/03/17 Code(s): N40.0 - Benign prostatic hyperplasia without lower urinary tract symptoms Qualifiers: Lower urinary tract symptom presence: symptoms present Lower urinary tract symptom detail: urinary frequency Qualified Code(s): N40.1 - Benign prostatic hyperplasia with lower urinary tract symptoms; R35.0 - Frequency of micturition Category: Medical
[2019-04-26] MEDS: GABAPENTIN 300 MG CAPSULE PO SCH (09:06)
[2019-04-26] MEDS: OMEPRAZOLE 20 MG CAPSULE PO SCH (09:06)
[2019-04-26] MEDS: Acetaminophen 1000mg Inj 1,000 MG/100 ML VIAL IV PRN (09:07)
--- NOTE | 2019-04-26 09:54 | PTI REPORT ---
Thank you for the referral of Andrae [place]. He was seen on 04/23/19 for an inpatient evaluation status post left sided rib and pelvis fracture. SUBJECTIVE: The patient is a 73-year-old male who was admitted to the hospital for multiple fractures after tripping on stairs. Based on the patient's chart, the patient presents with left sided rib fractures and pelvic fracture of the superior pubic rami. The patient lives in [place] with his in a single story house with steps in front, but the patient states that he uses the back entrance that has a ramp. The patient states he currently has a rolling walker at home and tub showers. The patient has a history of a lumbar surgery two years ago which resulted in a left foot drop. The patient's weight-bearing status is currently toe touch weight-bearing for up to three months per patient's chart. PAST MEDICAL HISTORY: Past medical history can be found in the patient's medical record. OBJECTIVE FINDINGS: Bed mobility: The patient requires min assist for scooting up in bed. For supine to sit transfers the patient requires stand by assist. The patient is independent sitting edge of bed. Transfers: The patient requires contact guard assist for sit to stand transfers with verbal cues for transfer sequencing using rolling walker. The patient observes toe touch weight-bearing status throughout. The patient is able to stand with rolling walker and stand by assist. ASSESSMENT: Rehab potential is good. Problem List: Significant pain Posterior lateral thoracic pain and hip pain Impaired bed mobility Impaired transfers Impaired ambulation Short-Term Goals: To be met by discharge from inpatient: Patient will be able to complete bed mobility independently with safety. Patient will be able to complete transfers mod independently with appropriate assistive device. Patient will be able to ambulate 150 feet safely on even ground with appropriate assistive device. Patient will be able to ascend and descend five steps safely with modified independence with appropriate assistive device. Long-Term Goals: To be met following discharge from inpatient: Patient will be independent with all ADLs, transfers, mobility, and ambulation. TREATMENT PLAN: Patient will be seen B.I.D during the week and one time per day over the weekend as an inpatient for continued transfer training, strengthening, and mobility in order to be independent with all ADLs, ambulation, transfers, and mobility. INITIAL TREATMENT: Treatment today consisted of the initial evaluation followed by therapeutic activity including sit to stands x5, standing each time for approximately three minutes. RONALDD
--- NOTE | 2019-04-26 10:30 | OTI REPORT ---
Thank you for the referral of Andrae [place]. He was seen on 04/23/19 for an occupational therapy inpatient evaluation status post left sided rib and pelvis fractures. SUBJECTIVE: The patient is a 73-year-old male. The patient states he fell off of some stairs. Prior to admission the patient was independent with all ADLs and functional transfers. PAST MEDICAL HISTORY: Past medical history can be found in the patient's medical record. OBJECTIVE FINDINGS: Bed mobility: The patient was able to come from supine to sit with increased time and pain moving left lower extremity. Activities of daily living: The patient was having a lot of difficulty and pain with dressing self. He was issued a project engineering manager and practiced using project engineering manager to doff socks as well as don lower extremity clothing. The patient was able to don socks with the sock aide as well. The patient was issued a bath sponge and long handled shoe horn as he is having a lot of pain with bending over. The patient was also issued a high rise toilet seat as he states that he has a very low toilet at home. The patient already has a shower chair. The patient is also having difficulty trying to wipe, so he was issued toilet tongs to improve independence with this. ASSESSMENT: The patient would benefit from adaptive devices and further training with use of adaptive devices. Problem List: Decreased ability to perform functional transfers Decreased ability to bend over secondary to pain levels Decreased ability to complete ADLs Short-Term Goals: To be met by discharge from inpatient: Patient will be able to dress self with adaptive devices with modified independence. Patient will be able to complete toilet transfer with stand by assist. Patient will be able to complete showering task with stand by assist. Patient will be independent with a home program to improve upper extremity strength. Long-Term Goals: To be met following discharge from inpatient: Patient will return home, demonstrating safety and independence with ADLs and functional activity. TREATMENT PLAN: Patient will be seen B.I.D during the week and one time per day over the weekend as an inpatient to address the above goals and objectives. INITIAL TREATMENT: Treatment today consisted of the initial evaluation activities only. MICHAEL
== END 2019-04-26 10:59 | disposition home or self-care (01) | DRG 536 ==
LOC: ER 18:01 → MED/SURG 22:53
PROVIDERS: ADMIT Surgery; ATTEND Surgery